=== PATIENT | male | born 1955 | race Caucasian/White ===

== ENCOUNTER 2017-01-11 22:40 | Observation (INO) | payer BC ==
--- NOTE | 2017-01-11 22:54 | EDM.PDOC ---
ED HPI GENERAL MEDICAL PROBLEM - General Chief Complaint: Syncope Stated Complaint: PASSED OUT Time Seen by Provider: 01/11/17 23:44 - History of Present Illness INITIAL COMMENTS - FREE TEXT/NARRATIVE: HISTORY AND PHYSICAL: History of present illness: Patient 61-year-old white male with no significant past medical striction concern of syncope patient states he passed out tonight after he got out of bed to try to get something he states he is not eating well or last 2-3 days and working long hours on the farm. He denies chest pain palpitations shortness but there is no associated trauma he denies abdominal pain states he has had some intermittent nausea. Review of systems: As per history of present illness and below otherwise all systems reviewed and negative. Past medical history: As per history of present illness and as reviewed below otherwise noncontributory. Surgical history: As per history of present illness and as reviewed below otherwise noncontributory. Social history: No reported history of drug or alcohol abuse. Family history: As per history of present illness and as reviewed below otherwise noncontributory. Physical exam: HEENT: Atraumatic, normocephalic, pupils reactive, negative for conjunctival pallor or scleral icterus, mucous membranes dry, throat clear, neck supple, nontender, trachea midline. Lungs: Clear to auscultation, breath sounds equal bilaterally, chest nontender. Heart: S1S2, regular, negative for clicks, rubs, or JVD. Abdomen: Soft, nondistended, nontender. Negative for masses or hepatosplenomegaly. Negative for costovertebral tenderness. Pelvis: Stable nontender. Genitourinary: Deferred. Rectal: Deferred. Extremities: Atraumatic, negative for cords or calf pain. Neurovascular unremarkable. Neuro: Awake, alert, oriented. Cranial nerves II through XII unremarkable. Cerebellum unremarkable. Motor and sensory unremarkable throughout. Exam nonfocal. Diagnostics: CBC CMP troponin PT INR chest x-ray EKG orthostatic vital Therapeutics: Saline 1 L bolus Impression: #1 syncope Definitive disposition and diagnosis as appropriate pending reevaluation and review of above. - Related Data Allergies Allergy/AdvReac Type Severity Reaction Status Date / Time No Known Allergies Allergy Verified 01/11/17 22:54 Home Meds: Home Meds . [No Known Home Meds] 01/11/17 [History] ED ROS GENERAL - Review of Systems Review Of Systems: ROS reveals no pertinent complaints other than HPI. ED EXAM, GENERAL - Physical Exam Exam: See Below Course - Vital Signs Last Recorded V/S: Last Vital Signs Temp 36.9 C 01/11/17 22:44 Pulse 72 01/11/17 22:44 Resp 19 01/11/17 22:44 BP 103/71 01/11/17 22:44 Pulse Ox 93 L 01/11/17 22:44 - Orders/Labs/Meds Orders: Active Orders 24 hr Category Date Time Status EKG 12 Lead [EKG Documentation Completion] [RC] STAT Care 01/11/17 22:47 Active Chest 1V Frontal [CR] Stat Exams 01/11/17 23:03 Taken COMPREHENSIVE METABOLIC PN,CMP [CHEM] Stat Lab 01/11/17 23:10 Received CREATINE KINASE,CK [CHEM] Stat Lab 01/11/17 23:10 Received Sodium Chloride 0.9% [Normal Saline] 1,000 ml Med 01/11/17 23:08 Active IV .BOLUS Medication Orders Sodium Chloride (Normal Saline) 1,000 mls @ 999 mls/hr IV .BOLUS ONE Stop: 01/12/17 00:08 Last Admin: 01/11/17 23:17 Dose: 999 mls/hr Labs: Laboratory Tests 01/11/17 01/11/17 01/11/17 Range/Units 23:10 23:10 23:10 WBC 11.90 H (4.0-11.0) K/uL RBC 4.60 (4.50-5.90) M/uL Hgb 14.1 (13.0-17.0) g/dL Hct 42.6 (38.0-50.0) % MCV 92.6 (80.0-98.0) fL MCH 30.7 (27.0-32.0) pg MCHC 33.1 (31.0-37.0) g/dL RDW Std Deviation 44.9 (28.0-62.0) fl RDW Coeff of Lukas 13 (11.0-15.0) % Plt Count 129 L (150-400) K/uL MPV 11.30 (7.40-12.00) fL Neut % (Auto) 86.2 H (48.0-80.0) % Lymph % (Auto) 5.2 L (16.0-40.0) % Barber % (Auto) 8.4 (0.0-15.0) % Eos % (Auto) 0.1 (0.0-7.0) % Baso % (Auto) 0.1 (0.0-1.5) % Neut # (Auto) 10.3 H (1.4-5.7) K/uL Lymph # (Auto) 0.6 (0.6-2.4) K/uL Barber # (Auto) 1.0 H (0.0-0.8) K/uL Eos # (Auto) 0.0 (0.0-0.7) K/uL Baso # (Auto) 0.0 (0.0-0.1) K/uL Nucleated RBC % 0.0 /100WBC Nucleated RBCs # 0 K/uL INR 1.05 (0.86-1.11) Troponin I < 0.10 (0.0-0.29) NG/ML Meds: Medications Generic Name Dose Route Start Last Admin Trade Name Freq PRN Reason Stop Dose Admin Sodium Chloride 1,000 mls @ 999 mls/hr 01/11/17 23:08 01/11/17 23:17 Normal Saline IV 01/12/17 00:08 999 mls/hr .BOLUS ONE Administration Discontinued Medications Generic Name Dose Route Start Last Admin Trade Name Freq PRN Reason Stop Dose Admin Ondansetron HCl 4 mg 01/11/17 23:08 01/11/17 23:17 Zofran IVPUSH 01/11/17 23:09 4 mg ONETIME ONE Administration Departure - Departure Time of Disposition: 23:44 Disposition: Refer to Observation Condition: good Clinical Impression: Syncope Forms: ED Department Discharge - My Orders Last 24 Hours: My Active Orders 01/11/17 22:47 EKG 12 Lead [EKG Documentation Completion] [RC] STAT 01/11/17 23:03 Chest 1V Frontal [CR] Stat 01/11/17 23:08 Sodium Chloride 0.9% [Normal Saline] 1,000 ml IV .BOLUS 01/11/17 23:10 COMPREHENSIVE METABOLIC PN,CMP [CHEM] Stat CREATINE KINASE,CK [CHEM] Stat - Assessment/Plan Last 24 Hours: My Active Orders 01/11/17 22:47 EKG 12 Lead [EKG Documentation Completion] [RC] STAT 01/11/17 23:03 Chest 1V Frontal [CR] Stat 01/11/17 23:08 Sodium Chloride 0.9% [Normal Saline] 1,000 ml IV .BOLUS 01/11/17 23:10 COMPREHENSIVE METABOLIC PN,CMP [CHEM] Stat CREATINE KINASE,CK [CHEM] Stat
[2017-01-11] MEDS ORDERED: Ondansetron 4 MG/2 ML SDV IVPUSH ONE (23:08)
[2017-01-11] MEDS ORDERED: Sodium Chloride 0.9% 1,000 ML IV ONE (23:08)
[2017-01-11 23:40] LABS: CHLORIDE,CL 104 mmol/L (98-110); SODIUM,NA 136 mmol/L (136-146)
[2017-01-12] MEDS ORDERED: Pantoprazole 40 MG Tab.CR PO SCH (00:45)
[2017-01-12] MEDS ORDERED: Sodium Chloride 0.9% 1,000 ML IV SCH ×2 (00:45→01:30)
--- NOTE | 2017-01-12 00:48 | PCM.HP ---
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 Came to with a start, no confusion or rpost-ichtal symptoms Source of Information: Patient, Family History Limitations: Reports: No limitations - History of Present Illness Onset of Symptoms: Reports: today Duration of Symptoms: Reports: Minutes: Location: Reports: upper extremity, left, upper extremity, right Quality: Reports: Ache Severity: moderate Improves with: Reports: Other (used ibuprofen) Worsens with: Reports: None (not exertional) - Related Data Allergies/Adverse Reactions: Allergies Allergy/AdvReac Type Severity Reaction Status Date / Time No Known Allergies Allergy Verified 01/11/17 22:54 Home Medications: Home Meds . [No Known Home Meds] 01/11/17 [History] Past Medical History - Past Health History Medical/Surgical History: Denies Medical/Surgical History Musculoskeletal History: Reports: Other (see below) (back surgery) Other Musculoskeletal History: Fracture elbows - Infectious Disease History Infectious Disease History: Reports: Chicken pox, Measles, Mumps - Past Surgical History HEENT Surgical History: Reports: Tonsillectomy GI Surgical History: Reports: Appendectomy, Cholecystectomy Social & Family History - Family History Family Medical History: Noncontributory Other Cardiac Family History: father 58 brother 51 of [place] - Tobacco Use Smoking Status *Q: Never Smoker Second Hand Smoke Exposure: No - Caffeine Use Caffeine Use: Reports: Soda Caffeine Use Comment: 4-5drinks/ day - Recreational Drug Use Recreational Drug Use: No H&P Review of Systems - Review of Systems: Review Of Systems: See Below General: Reports: fatigue. Denies: weight loss HEENT: Reports: other (had some epistaxis recently) Pulmonary: Reports: No Symptoms Cardiovascular: Reports: lightheadedness, syncope Gastrointestinal: Reports: Nausea Genitourinary: Reports: frequency (nocturia) Musculoskeletal: Reports: shoulder pain, hand pain Skin: Reports: no symptoms Psychiatric: Reports: anxiety (daughter reports he worries about everything) Neurological: Reports: Syncope Hematologic/Lymphatic: Reports: no symptoms Immunologic: Reports: no symptoms Exam - Exam Exam: See Below - Vital Signs Vital Signs: Last Vital Signs Temp 36.9 C 01/11/17 22:44 Pulse 76 01/12/17 00:09 Resp 16 01/12/17 00:09 BP 109/77 01/12/17 00:09 Pulse Ox 97 01/12/17 00:09 Weight: 88.451 kg - Exam General: alert, cooperative HEENT: Conjunctiva clear, Nares patent Neck: supple, 2+ carotid pulse wo bruit Lungs: Clear to auscultation Cardiovascular: regular rate, regular rhythm, normal S1, normal S2 Abdomen: normal bowel sounds (Male) Exam: Deferred Rectal (Males) Exam: Deferred Extremities: No: calf tenderness, edema - Patient Data Result Diagrams: 01/11/17 23:10 01/11/17 23:10 *Q Meaningful Use (ADM) - VTE *Q VTE Criteria *Q: - Stroke *Q Stroke Criteria *Q: - AMI *Q AMI Criteria *Q: - Problem List (1) Nausea SNOMED Code(s): 169239577 ICD Code: R11.0 - NAUSEA Status: Acute Current Visit: Yes (2) Arthralgia SNOMED Code(s): 64239033 ICD Code: M25.50 - PAIN IN UNSPECIFIED JOINT Status: Chronic Priority: Medium Current Visit: Yes Qualifiers: Joint pain location: shoulder Laterality: bilateral Qualified Code(s): M25.511 - Pain in right shoulder; M25.512 - Pain in left shoulder (3) Syncope SNOMED Code(s): 524068313 ICD Code: R55 - SYNCOPE AND COLLAPSE Status: Acute Priority: High Current Visit: Yes Onset Date: ~01/11/17 Qualifiers: Syncope type: unspecified Qualified Code(s): R55 - Syncope and collapse Problem List Initiated/Reviewed/Updated: Yes Orders Last 24hrs: Active Orders 24 hr Category Date Time Status Patient Status [ADT] Routine ADT 01/12/17 00:32 Ordered Blood Glucose Check, Bedside [RC] TIDMEALS Care 01/12/17 00:32 Ordered EKG Documentation Completion [RC] AM Care 01/12/17 00:32 Ordered Orthostatic Vital Signs [RC] ASDIRECTED Care 01/12/17 00:39 Ordered Oxygen Therapy [RC] PRN Care 01/12/17 00:32 Ordered VTE/DVT Education [RC] PER UNIT ROUTINE Care 01/12/17 00:32 Ordered Vital Signs [RC] Q4H Care 01/12/17 00:32 Ordered Regular Diet [DIET] Diet 01/12/17 Breakfast Ordered TROPONIN I [CHEM] AM Lab 01/12/17 05:11 Ordered Pantoprazole [ProTONIX] Med 01/12/17 00:45 Ordered 40 mg PO BEDTIME Sodium Chloride 0.9% [Normal Saline] 1,000 ml Med 01/12/17 00:45 Ordered IV .BOLUS Resuscitation Status Routine Resus Stat 01/12/17 00:32 Ordered Medication Orders Sodium Chloride (Normal Saline) 1,000 mls @ 100 mls/hr IV .BOLUS STEFANO Pantoprazole Sodium (Protonix) 40 mg PO BEDTIME STEFANO Assessment/Plan Comment:: possible orthostasis from dehydrationn, association with nausea suggests vasovagal mechanism, diaphoresisis may indicate arrhythmia or ischemia
--- NOTE | 2017-01-12 10:35 | PCM.DCSUM1 ---
Discharge Summary - Discharge Data Discharge Date: 01/12/17 Discharge Disposition: Home, Self-Care 01 Condition: Good - Discharge Diagnosis/Problem(s) (1) Nausea SNOMED Code(s): 743650141 ICD Code: R11.0 - NAUSEA Status: Acute Priority: Medium Current Visit: Yes (2) Arthralgia SNOMED Code(s): 82568592 ICD Code: M25.50 - PAIN IN UNSPECIFIED JOINT Status: Chronic Priority: Medium Current Visit: Yes Qualifiers: Joint pain location: shoulder Laterality: bilateral Qualified Code(s): M25.511 - Pain in right shoulder; M25.512 - Pain in left shoulder (3) Syncope SNOMED Code(s): 866156012 ICD Code: R55 - SYNCOPE AND COLLAPSE Status: Acute Priority: High Current Visit: Yes Onset Date: ~01/11/17 Qualifiers: Syncope type: unspecified Qualified Code(s): R55 - Syncope and collapse - Patient Instructions Diet: Usual Diet as Tolerated (eat and drink regularily, don't work all day without food or fluid) Activity: As Tolerated (pace yourself, it'snot the [employer]) Driving: May Drive Today Other/Special Instructions: take over the counter OMEPRAZOLE for stomach upset/ nausea - Discharge Plan Home Medications: Home Meds . [No Known Home Meds] 01/11/17 [History] Patient Handouts: Rehydration, Adult, Syncope Referrals: Yordan Patton MD [Primary Care Provider] - - Discharge Summary/Plan Comment DC Time >30 min.: No - General Info Date of Service: 01/12/17 Functional Status: Reports: pain controlled - Review of Systems General: Reports: No Symptoms HEENT: Reports: no symptoms Pulmonary: Reports: no symptoms Cardiovascular: Reports: No Symptoms Gastrointestinal: Reports: No symptoms Genitourinary: Reports: no symptoms Musculoskeletal: Reports: no symptoms Neurological: Denies: Dizziness - Patient Data Vitals - Most Recent: Last Vital Signs Temp 37.1 C 01/12/17 09:00 Pulse 76 01/12/17 09:00 Resp 18 01/12/17 09:00 BP 112/72 01/12/17 09:00 Pulse Ox 93 L 01/12/17 09:00 Orthostatic Blood Pressure [ 108/56 Standing] Orthostatic Blood Pressure [ 118/59 Sitting] Orthostatic Blood Pressure [ 102/67 Supine] Weight - Most Recent: 88.451 kg I&O - Last 24 hours: Intake & Output 01/11/17 01/12/17 01/12/17 22:59 06:59 14:59 Intake Total 75 Output Total 300 Balance -225 Lab Results - Last 24 hrs: Laboratory Results - last 24 hr 01/12/17 Range/Units 06:34 Troponin I < 0.10 (0.0-0.29) NG/ML Med Orders - Current: Current Medications Sodium Chloride (Normal Saline) 1,000 mls @ 100 mls/hr IV ASDIRECTED [facility] Last Admin: 01/12/17 01:27 Dose: 100 mls/hr Pantoprazole Sodium (Protonix) 40 mg PO BEDTIME [facility] Last Admin: 01/12/17 01:09 Dose: 40 mg Discontinued Medications Sodium Chloride (Normal Saline) 1,000 mls @ 999 mls/hr IV .BOLUS ONE Stop: 01/12/17 00:08 Last Admin: 01/11/17 23:17 Dose: 999 mls/hr Ondansetron HCl (Zofran) 4 mg IVPUSH ONETIME ONE Stop: 01/11/17 23:09 Last Admin: 01/11/17 23:17 Dose: 4 mg - Exam General: Reports: alert, oriented Lungs: Reports: Clear to auscultation Cardiovascular: Reports: Regular Rate Abdomen: Reports: bowel sounds present (Male) Exam: Deferred Rectal (Males) Exam: Deferred Skin: Reports: warm, dry Psy/Mental Status: Reports: alert *Q Meaningful Use (DIS) - VTE *Q VTE Criteria *Q: - Stroke *Q Stroke Criteria *Q: - AMI *Q AMI Criteria *Q:
[2017-01-12 11:11] VITALS: BP 112/72
--- NOTE | 2017-01-12 18:51 | CR ---
EXAM DATE: 01/11/17 PATIENT'S AGE: 61 Patient: DI TORRES Facility: [place], [place] Site . Site : 1955 Study: XRay Chest [id number] 11:19:43 PM Ordering Physician: Delmer Farmer Final Report: HISTORY: Syncope. FINDINGS: AP portable chest radiograph demonstrates a normal cardiac silhouette. Pulmonary vasculature and hilar are normal. No lobar consolidation or pleural effusion is seen. IMPRESSION: No acute cardiopulmonary disease. Dictated by Abby Fontanez MD @ 01/11/2017 11:41:52 PM Dictated by: Abby Fontanez MD @ 01/11/2017 23:42:02 (Electronic Signature) Report Signed by Proxy. [facility]
== END 2017-01-12 11:31 | disposition home or self-care (01) ==
LOC: MW.ED 22:40 → MW.MS 23:45
PROVIDERS: ADMIT Internal Medicine; ATTEND Internal Medicine
DX: R55 Syncope and collapse (principal); R11.0 Nausea; M25.512 Pain in left shoulder; Z90.49 Acquired absence of other specified parts of digestive tract; Z98.890 Other specified postprocedural states
CPT/HCPCS: 36415; 71010; 80053; 82550; 84484; 85025; 85610; 93005; 96361; 96374; 99285; A9270; G0378; J2405; J7040

== ENCOUNTER → 2017-01-20 | Outpatient (CLI) | payer BC | END | disposition home or self-care (01) | LOC: MW.CHFP 07:28 | PROVIDERS: ATTEND Emergency Medicine | DX: R55 Syncope and collapse (principal); R73.9 Hyperglycemia, unspecified | CPT/HCPCS: 36415; 80061; 82533; 82947; 83036 ==

== ENCOUNTER 2025-06-08 02:23 | Emergency (ER) | payer MEDICARE, OTHER ==
[2025-06-08 03:14] LABS: BASOPHILS ABSOLUTE AUTO 0.03 K/uL (0.00-0.20); BASOPHILS PERCENT AUTO 0.5 % (0.0-1.0); EOSINOPHILS ABSOLUTE AUTO 0.02 K/uL (0.00-0.45); EOSINOPHILS PERCENT AUTO 0.3 % (0.0-6.0); IMMATURE GRAN ABSOLUTE AUTO 0.04 K/uL (0.00-0.05); IMMATURE GRAN PERCENT AUTO 0.6 % (0.0-0.4); LYMPHOCYTES ABSOLUTE AUTO 1.51 K/uL (1.00-4.80); LYMPHOCYTES PERCENT AUTO 22.7 % (24.0-44.0); MEAN PLATELET VOLUME 10.5 fL (9.4-12.4); MONOCYTES ABSOLUTE AUTO 0.92 K/uL (0.00-0.80); MONOCYTES PERCENT AUTO 13.8 % (0.0-8.0); NEUTROPHILS ABSOLUTE AUTO 4.14 K/uL (1.80-7.70); NEUTROPHILS PERCENT AUTO 62.1 % (41.0-71.0); NRBC ABSOLUTE 0.00 K/uL (0.00-0.02); NRBC PERCENT 0.0 /100WBC (0.0-0.2); PLATELET COUNT,PLT 152 K/uL (150-400); RED BLOOD CELL COUNT 4.20 M/uL (4.52-5.90); WHITE BLOOD CELL COUNT,WBC 6.66 K/uL (3.9-11.3)
[2025-06-08] MEDS: Ketorolac 30 MG/ML SDV IVPUSH ONE (03:16)
[2025-06-08] MEDS: Ondansetron 4 MG/2 ML SDV IVPUSH ONE (03:16)
[2025-06-08 03:42] LABS: A/G RATIO 1.0 (0.9-1.6); ALANINE AMINOTRANSFERASE,ALT 12.0 IU/L (14-63); ASPARTATE AMNIOTRANSFERASE,AST 19.0 IU/L (15-37); BILIRUBIN TOTAL 0.4 mg/dL (0.2-1.0); BLOOD UREA NITROGEN,BUN 15.0 mg/dL (7.0-18.0); CARBON DIOXIDE,CO2 28.0 mmol/L (21.0-32.0); CHLORIDE,CL 103.0 mmol/L (98-107); CREATININE 1.2 mg/dL (0.8-1.3); EST CRCL DRUG DOSING (CG) 62.75 mL/min; ESTIMATED GFR 66.0 mL/min (>60); GLUCOSE RANDOM 101.0 mg/dL (74-106); POTASSIUM,K 4.4 mmol/L (3.5-5.1); PRO B-TYPE NATRIUR PEPT,BNPPRO 38.0 pg/mL (0-125); PROTEIN TOTAL,TP 7.3 g/dL (6.4-8.2); SODIUM,NA 136.0 mmol/L (136-148)
[2025-06-08] MEDS: Iopamidol 755 MG/ML 500 ML Multipack Bottle IVPUSH STA (05:04)
[2025-06-08 05:50] LABS: APPEARANCE,URINE CLOUDY; GLUCOSE,URINE NEGATIVE (NEGATIVE); OCCULT BLOOD,URINE SMALL (NEGATIVE)
[2025-06-08 06:03] LABS: EPITHELIAL CELLS,URINE RARE (NONE-FEW)
[2025-06-08] MEDS: cefTRIAXone 1 GM in Water For Injection, Sterile 10 ML IVPUSH ONE (06:22)
[2025-06-08 08:09] VITALS: BP 99/73; PULSE 69
== END 2025-06-08 08:08 | disposition home or self-care (01) ==
LOC: MW.ED 02:23
DX: N12 Tubulo-interstitial nephritis, not specified as acute or chronic (principal); Z90.49 Acquired absence of other specified parts of digestive tract; Z79.899 Other long term (current) drug therapy; Z75.3 Unavailability and inaccessibility of health-care facilities
CPT/HCPCS: 36415; 71045; 74177; 76705; 80053; 81001; 83690; 83735; 83880; 84484; 85025; 87086; 93005; 96374; 96375; 96376; 99284; J0696; J1885; J2405; Q9967; 93010; J1171

== ENCOUNTER 2025-06-11 13:30 | Inpatient (IN) | payer MEDICARE, OTHER ==
[2025-06-11] MEDS ORDERED: Sodium Chloride 0.9% 2.5 ML Syringe FLUSH PRN (13:52)
[2025-06-11] MEDS ORDERED: Sodium Chloride 0.9% 10 ML Syringe FLUSH PRN (13:52)
[2025-06-11] MEDS: Ondansetron 4 MG/2 ML SDV IVPUSH ONE (14:21)
[2025-06-11] MEDS: fentaNYL 100 MCG/2 ML SDV IVPUSH ONE (14:21)
[2025-06-11 14:31] LABS: MEAN PLATELET VOLUME 10.6 fL (9.4-12.4); NRBC ABSOLUTE 0.00 K/uL (0.00-0.02); NRBC PERCENT 0.0 /100WBC (0.0-0.2); PLATELET COUNT,PLT 186 K/uL (150-400); RED BLOOD CELL COUNT 4.65 M/uL (4.52-5.90); WHITE BLOOD CELL COUNT,WBC 18.03 K/uL (3.9-11.3)
[2025-06-11 15:02] LABS: A/G RATIO 0.7 (0.9-1.6); ALANINE AMINOTRANSFERASE,ALT 11.0 IU/L (14-63); ASPARTATE AMNIOTRANSFERASE,AST 21.0 IU/L (15-37); BILIRUBIN TOTAL 1.3 mg/dL (0.2-1.0); BLOOD UREA NITROGEN,BUN 18.0 mg/dL (7.0-18.0); CARBON DIOXIDE,CO2 26.8 mmol/L (21.0-32.0); CHLORIDE,CL 99.0 mmol/L (98-107); CREATININE 0.9 mg/dL (0.8-1.3); EST CRCL DRUG DOSING (CG) 86.22 mL/min; GLUCOSE RANDOM 114.0 mg/dL (74-106); POTASSIUM,K 4.3 mmol/L (3.5-5.1); PROTEIN TOTAL,TP 7.7 g/dL (6.4-8.2); SODIUM,NA 135.0 mmol/L (136-148)
[2025-06-11 15:05] LABS: BASOPHILS ABSOLUTE MAN 0.18 K/uL (0.00-0.20); BASOPHILS PERCENT MAN 1 % (0-1); LYMPHOCYTES ABSOLUTE MAN 1.26 K/uL (1.00-4.80); LYMPHOCYTES PERCENT MAN 7 % (24-44); MONOCYTES ABSOLUTE MAN 1.80 K/uL (0.00-0.80); MONOCYTES PERCENT MAN 10 % (0-8); SEG NEUTROPHILS ABSOLUTE MAN 14.78 K/uL (1.80-7.70); SEG NEUTROPHILS PERCENT MAN 82 % (41-71)
[2025-06-11 15:12] LABS: ESTIMATED GFR 93.0 mL/min (>60)
[2025-06-11 15:22] LABS: GLUCOSE,URINE NEGATIVE (NEGATIVE); OCCULT BLOOD,URINE NEGATIVE (NEGATIVE)
[2025-06-11 15:23] LABS: APPEARANCE,URINE HAZY
[2025-06-11] MEDS: Iopamidol 755 Mg/ML 100 ML Bottle IVPUSH ONE (15:25)
[2025-06-11 15:29] LABS: EPITHELIAL CELLS,URINE FEW (NONE-FEW)
[2025-06-11] MEDS ORDERED: Ondansetron 4 MG/2 ML SDV IVPUSH PRN (18:01)
[2025-06-11 19:03] LABS: LACTIC ACID 1.9 mmol/L (0.4-2.0)
[2025-06-11] MEDS: Lactated Ringers 1,000 ML IV SCH (19:21)
[2025-06-11] MEDS: Ketorolac 30 MG/ML SDV IVPUSH SCH (19:44)
[2025-06-12 05:53] LABS: MEAN PLATELET VOLUME 10.3 fL (9.4-12.4); NRBC ABSOLUTE 0.00 K/uL (0.00-0.02); NRBC PERCENT 0.0 /100WBC (0.0-0.2); PLATELET COUNT,PLT 162 K/uL (150-400); RED BLOOD CELL COUNT 3.71 M/uL (4.52-5.90); WHITE BLOOD CELL COUNT,WBC 14.71 K/uL (3.9-11.3)
[2025-06-12 06:31] LABS: A/G RATIO 0.6 (0.9-1.6); ALANINE AMINOTRANSFERASE,ALT 10.0 IU/L (14-63); ASPARTATE AMNIOTRANSFERASE,AST 22.0 IU/L (15-37); BILIRUBIN TOTAL 1.1 mg/dL (0.2-1.0); BLOOD UREA NITROGEN,BUN 22.0 mg/dL (7.0-18.0); CARBON DIOXIDE,CO2 29.4 mmol/L (21.0-32.0); CHLORIDE,CL 104.0 mmol/L (98-107); CREATININE 1.0 mg/dL (0.8-1.3); EST CRCL DRUG DOSING (CG) 77.6 mL/min; GLUCOSE RANDOM 91.0 mg/dL (74-106); POTASSIUM,K 4.6 mmol/L (3.5-5.1); PROTEIN TOTAL,TP 6.1 g/dL (6.4-8.2); SODIUM,NA 139.0 mmol/L (136-148)
[2025-06-12 06:51] LABS: ESTIMATED GFR 82.0 mL/min (>60)
[2025-06-12] MEDS ORDERED: Propofol 200 MG/20 ML SDV ONE (07:34)
[2025-06-12] MEDS ORDERED: Midazolam 1 MG/ML 2 ML SDV ONE (07:34)
[2025-06-12] MEDS ORDERED: fentaNYL 100 MCG/2 ML SDV ONE ×2 (07:34→09:16)
[2025-06-12] MEDS ORDERED: dexmedeTOMIDine HCl 200 MCG/2 ML SDV ONE (07:35)
[2025-06-12] MEDS ORDERED: Ropivacaine 0.5% 5 MG/ML 30 ML SDV ONE (07:38)
[2025-06-12] MEDS ORDERED: Indocyanine Green 25 MG SDV ONE (08:40)
[2025-06-12] MEDS ORDERED: Ondansetron 4 MG/2 ML SDV ONE (09:55)
[2025-06-12] MEDS ORDERED: Dexamethasone 4 MG/ML 5 ML MDV ONE (09:55)
[2025-06-12] MEDS: Acetaminophen/oxyCODONE 325-5 MG Tab PO PRN (17:50)
[2025-06-12] MEDS: Sennosides/Docusate Sodium 50-8.6 MG Tab PO SCH (21:22)
[2025-06-12] MEDS: Lactated Ringers 1,000 ML IV SCH (21:52)
[2025-06-13 05:58] LABS: MEAN PLATELET VOLUME 10.9 fL (9.4-12.4); NRBC ABSOLUTE 0.00 K/uL (0.00-0.02); NRBC PERCENT 0.0 /100WBC (0.0-0.2); PLATELET COUNT,PLT 160 K/uL (150-400); RED BLOOD CELL COUNT 3.18 M/uL (4.52-5.90); WHITE BLOOD CELL COUNT,WBC 13.50 K/uL (3.9-11.3)
[2025-06-13 06:34] LABS: A/G RATIO 0.6 (0.9-1.6); ALANINE AMINOTRANSFERASE,ALT 23.0 IU/L (14-63); ASPARTATE AMNIOTRANSFERASE,AST 35.0 IU/L (15-37); BILIRUBIN TOTAL 0.6 mg/dL (0.2-1.0); BLOOD UREA NITROGEN,BUN 17.0 mg/dL (7.0-18.0); CARBON DIOXIDE,CO2 26.2 mmol/L (21.0-32.0); CHLORIDE,CL 106.0 mmol/L (98-107); CREATININE 0.9 mg/dL (0.8-1.3); EST CRCL DRUG DOSING (CG) 86.22 mL/min; GLUCOSE RANDOM 113.0 mg/dL (74-106); POTASSIUM,K 4.5 mmol/L (3.5-5.1); PROTEIN TOTAL,TP 5.3 g/dL (6.4-8.2); SODIUM,NA 139.0 mmol/L (136-148)
[2025-06-13 06:41] LABS: ESTIMATED GFR 93.0 mL/min (>60)
[2025-06-13] MEDS: Heparin Sodium 5,000 Units/ML Vial SUBCUT SCH (09:53)
[2025-06-14 06:02] LABS: MEAN PLATELET VOLUME 10.2 fL (9.4-12.4); NRBC ABSOLUTE 0.00 K/uL (0.00-0.02); NRBC PERCENT 0.0 /100WBC (0.0-0.2); PLATELET COUNT,PLT 201 K/uL (150-400); RED BLOOD CELL COUNT 3.05 M/uL (4.52-5.90); WHITE BLOOD CELL COUNT,WBC 7.96 K/uL (3.9-11.3)
[2025-06-14 06:33] LABS: ALANINE AMINOTRANSFERASE,ALT 28.0 IU/L (14-63); ASPARTATE AMNIOTRANSFERASE,AST 39.0 IU/L (15-37); BILIRUBIN TOTAL 0.4 mg/dL (0.2-1.0); BLOOD UREA NITROGEN,BUN 16.0 mg/dL (7.0-18.0); CARBON DIOXIDE,CO2 30.0 mmol/L (21.0-32.0); CHLORIDE,CL 109.0 mmol/L (98-107); CREATININE 1.0 mg/dL (0.8-1.3); EST CRCL DRUG DOSING (CG) 77.6 mL/min; GLUCOSE RANDOM 83.0 mg/dL (74-106); POTASSIUM,K 4.2 mmol/L (3.5-5.1); PROTEIN TOTAL,TP 5.1 g/dL (6.4-8.2); SODIUM,NA 145.0 mmol/L (136-148)
[2025-06-14 06:43] LABS: A/G RATIO 0.6 (0.9-1.6); ESTIMATED GFR 82.0 mL/min (>60)
[2025-06-14 11:15] VITALS: BP 135/73; PULSE 64
== END 2025-06-14 11:15 | disposition home or self-care (01) | DRG 415 ==
LOC: MW.ED 13:30 → MW.MS 17:27
PROVIDERS: ADMIT Surgery; ATTEND Surgery
PROC: 0FT40ZZ Resection of Gallbladder, Open Approach (ICD-10-PCS; principal; 2025-06-11)
PROC: 0FJ44ZZ Inspection of Gallbladder, Percutaneous Endoscopic Approach (ICD-10-PCS; 2025-06-11)
DX: K81.0 Acute cholecystitis (principal); N10 Acute pyelonephritis; D72.829 Elevated white blood cell count, unspecified; Z79.899 Other long term (current) drug therapy; N20.1 Calculus of ureter; Z98.890 Other specified postprocedural states; K81.9 Cholecystitis, unspecified; D72.825 Bandemia; Z90.49 Acquired absence of other specified parts of digestive tract
CPT/HCPCS: 36415; 74177; 80053; 81001; 83690; 83735; 85025; 93005; 96361; 96365; 96375; 99285; J2405; J2543; J3010; J7030 ×2; Q9967; 82947; 83605; 85027; 85730; 87040; 93010; 99284; A9270-GY; J0665; J0690; J1100; J1644; J1885; J2003; J2250; J2371; J2704; J2795; J3490; J7120